=== PATIENT | female | born 1995 | race African-American/Black ===

== ENCOUNTER 2021-06-01 16:58 | Emergency (ER) | payer OTHER ==
[~2021-06-01] VITALS: Ht 182.9 cm; Wt 73.0 kg
[2021-06-01] MEDS ORDERED: TETANUS, DIPHTHERIA, PERTUSSIS VAC/PF 0.5ML (>10YR OLD) IM ONE (20:30)
[2021-06-01] MEDS ORDERED: LIDOCAINE HCL/EPINEPHRINE 1%-EPI 1:100,000 20 ML VIAL INFIL ONE (20:30)
[2021-06-01] MEDS ORDERED: CEPH500C2 MT (20:55)
[2021-06-01] MEDS ORDERED: CEFAZOLIN SODIUM 1000MG/VIAL IM ONE (21:00)
[2021-06-01] MEDS ORDERED: STERILE WATER FOR INJECTION 10ML VIAL ONE (21:51)
[2021-06-01 22:28] VITALS: BP 130/67
== END 2021-06-01 22:29 | disposition home or self-care (01) ==
LOC: ER 16:58
DX: S01.81XA Laceration without foreign body of other part of head, initial encounter (principal); R51.9 Headache, unspecified; Y00.XXXA Assault by blunt object, initial encounter; Y93.89 Activity, other specified; Y92.89 Other specified places as the place of occurrence of the external cause
CPT/HCPCS: 12013; 70450; 81025; 90471; 90715; 96372; 99284; A4216; A4217; J0690; J3490; Z7610